=== PATIENT | male | born 1995 | race American Indian/Alaskan Native ===

== ENCOUNTER 2019-02-19 09:39 | Emergency (ER) | payer MEDICAID, OTHER ==
[2019-02-19 10:05] VITALS: BP 120/84
[2019-02-19 10:23] LABS: Hematocrit 42.3 % (35.5-45.6); Mean Corpuscular HGB Conc 33 % (32-34); Mean Corpuscular Volume 90 fl (84-94); Platelet Count 189 K/mm3 (140-440); Red Blood Count 4.69 M/mm3 (3.65-5.03); Red Cell Distribution Width 13.7 % (13.2-15.2)
[2019-02-19 10:40] LABS: BUN/Creatinine Ratio 9; Blood Urea Nitrogen 7 mg/dL (9-20); Calcium 9.6 mg/dL (8.4-10.2); Hemolysis Index 15
[2019-02-19 10:46] LABS: Bilirubin,Urine NEG (Negative); Blood,Urine NEG (Negative); Color,Urine Yellow (Yellow); Mucus,Urine FEW /HPF; Protein,Urine <15 mg/dL mg/dL (Negative)
[2019-02-19 11:38] LABS: Basophils % (Manual) 0 % (0.0-1.8); Myelocytes # (Manual) 0.1 K/mm3; Platelet Estimate Consistent w Auto; RBC Morphology Normal; Total Cells Counted 100
[2019-02-19] MEDS ORDERED: ROCEPHIN IM ONE (12:24)
[2019-02-19] MEDS ORDERED: XYLOCAINE 1% MPF 5 mL INFILTRATI ONE (12:24)
[2019-02-19] MEDS ORDERED: LIDOCAINE VISCOUS 2% MM ONE (12:25)
[2019-02-19] MEDS ORDERED: ZITHROMAX PO ONE (12:25)
--- NOTE | 2019-02-19 12:35 | Emergency Department Report ---
HPI - General Chief Complaint: Abdominal Pain Time Seen by Provider: 02/19/19 11:47 - HPI HPI: 24-year-old -[place] male presents to the emergency department complaint of a few days of rectal pain and anal discharge. The rectal pain is constant. The patient admits to engaging in anal sex but denies any toys or other foreign bodies inserted into the rectum. He has not taken anything for her symptoms prior to presentation. Denies any past medical history. He denies any fever, pelvic pain, abdominal pain on the back pain. ED Past Medical Hx - Past Medical History Previous Medical History?: No - Surgical History Past Surgical History?: No - Social History Smoking Status: Current Some Day Smoker Substance Use Type: Marijuana - Medications Home Medications: Home Medications Medication Instructions Recorded Confirmed Last Taken Type Sulfamethoxazole/Trimethoprim 1 each PO BID #14 tablet 02/19/19 Unknown Rx [Bactrim DS TAB] ED Review of Systems ROS: Stated complaint: ANAL PAIN/STOMACH ACHE/HEADACHE Other details as noted in HPI Comment: All other systems reviewed and negative Constitutional: denies: chills, fever Respiratory: denies: shortness of breath Gastrointestinal: other (rectal pain and discharge). denies: abdominal pain, vomiting, melena, hematochezia Genitourinary: denies: dysuria Musculoskeletal: denies: back pain Skin: denies: rash, lesions Physical Exam - Physical Exam Vital Signs: Vital Signs 02/19/19 10:03 Temperature 98.3 F Pulse Rate 72 Respiratory 18 Rate Blood Pressure 120/84 O2 Sat by Pulse 98 Oximetry Physical Exam: GENERAL: The patient is well-developed well-nourished. HENT: Normocephalic. Atraumatic. Patient has moist mucous membranes. EYES: Extraocular motions are intact. NECK: Supple. Trachea is midline. CHEST/LUNGS: Clear to auscultation. There is no respiratory distress noted. HEART/CARDIOVASCULAR: Regular. There is no tachycardia. There is no murmur. ABDOMEN: Abdomen is soft, nontender. Patient has normal bowel sounds. There is no abdominal distention. SKIN: Skin is warm and dry. NEURO: The patient is awake, alert, and oriented. The patient is cooperative. The patient has no focal neurologic deficits. Normal speech. MUSCULOSKELETAL: There is no tenderness or deformity. There is no evidence of acute injury. RECTAL: There is some mild tenderness to palpation along the rectal rim. No obvious abscess, fluctuance. No visible rash or lesions. ED Course Vital Signs 02/19/19 10:03 Temperature 98.3 F Pulse Rate 72 Respiratory 18 Rate Blood Pressure 120/84 O2 Sat by Pulse 98 Oximetry ED Medical Decision Making - Lab Data Result diagrams: 02/19/19 10:10 02/19/19 10:10 - Medical Decision Making Patient presents with rectal pain with a complaint of anal discharge. Patient has male sexual partners and says that he does engage in anal sex. I did not see any discharge during examination but with his complaints of pain and discharge he will be treated empirically for possible gonorrhea and chlamydia with Rocephin and azithromycin. He will also be given a prescription for some Bactrim to make sure that he is not forming some type of abscess just inside of the rectum where it is not visible. His vital signs are stable throughout his ED course including being afebrile. Labs have been unremarkable including no leukocytosis. He has been given referrals for primary care and the local health department. He will return to the emergency Department with any worsening of his symptoms or any acute distress. Critical Care Time: No Critical care attestation.: If time is entered above; I have spent that time in minutes in the direct care of this critically ill patient, excluding procedure time. ED Disposition Clinical Impression: Rectal pain Disposition: DC-01 TO HOME OR SELFCARE Is pt being admited?: No Condition: Stable Instructions: Sexually Transmitted Diseases (ED), Safe Sex (ED) Additional Instructions: Please follow-up with a primary care physician in the next few days. Return to the emergency Department with any worsening of your symptoms or any acute distress. Please avoid any sexual intercourse for at least one week after finishing your antibiotics. Prescriptions: Sulfamethoxazole/Trimethoprim [Bactrim DS TAB] 1 each PO BID #14 tablet Referrals: JOSEPH SALDAÑA MD [Staff Physician] - 2-3 Days [facility] [Outside] - 2-3 Days [facility] [Outside] - 2-3 Days Forms: Work/School Release Form(ED) Time of Disposition: 13:05
== END 2019-02-19 13:15 | disposition home or self-care (01) ==
LOC: ED 09:39
DX: K62.89 Other specified diseases of anus and rectum (principal); F17.200 Nicotine dependence, unspecified, uncomplicated; F12.10 Cannabis abuse, uncomplicated
CPT/HCPCS: 36415; 80048; 81001; 85007; 85025; 96372; 99283; J0696